=== PATIENT | male | born 1960 | race Caucasian/White ===

== ENCOUNTER 2016-08-26 03:01 | Inpatient (IN) | payer OTHER ==
[~2016-08-26] VITALS: Ht 190.5 cm; Wt 108.4 kg
[~2016-08-26 03:01] MED LIST: LIPITOR10 M1 PO
--- NOTE | 2016-08-26 08:24 | Admission Core Measures ---
Admission Meds I reviewed the following Meds: Current Medications Sig/Siva Start time Last Medication Dose Stop Time Status Admin Acetaminophen 975 MG ONCE 08/26 0000 NR (Tylenol) 08/26 2358 Oxycodone HCl 10 MG ONCE 08/26 NR (Roxicodone) 08/26 2358 Vancomycin HCl 1,500 MG ONCE ONE 08/26 0800 AC Sodium Chloride 250 ML 08/26 09 (Normal Saline 0.9%) Acute Coronary Syndrome Inclusion Criteria ACS Diagnosis No Inpatient Core Measures LDL Reminder: If No, please order W/I first 24hr of stay Congestive Heart Failure Inclusion Criteria CHF Diagnosis No Cerebrovascular accident Inclusion Criteria CVA/TIA Diagnosis No Inpatient Core Measures Bedside Swallow Eval Reminder: If BSE failed, place ST order Antithrombotic Reminder: Order Antithrombotic Medication by end of day 2 Antithrombotic Reminder: Document Reason Antithrombotic Not ordered by end of day 2 AFIB/Flutter Reminder: If Present, add to problem list AFIB/Flutter Reminder: Order Anticoag Medication for pts with AFIB/Flutter Atherosclerosis Reminder: If Present, add to problem list LDL Reminder: If No, please order W/I first 24hr of stay PT Order Reminder: If No, please order Venous thromboembolism Inpatient Core Measures VTE Risk Factors: Age > 40, Surgery VTE Prophylaxis Ordered Inpt Mech & Pharm No Mech VTE prophylaxis d/t No contraindications No VTE Pharm Prophylaxis d/t No contraindications Inclusion Criteria - Per Current guidelines, there needs to be overlap - treatment for the first 5 days of Warfarin therapy. - Parenteral Anticoagulation (IV or SC) needs to be - given along with Warfarin therapy. VTE Diagnosis No VTE Type NONE VTE Confirmed by (Test) NONE Problem List As ranked by this Provider includes Assessment & Plan 1. S/P total hip arthroplasty HOME MEDS Home Med List Atorvastatin Calcium (Lipitor) 10 MG TABLET 1 TAB PO DAILY HIGH CHOLESTEROL ( Reported)
[2016-08-26] MEDS ORDERED: DILAUDID4 M1 PO (08:38)
[2016-08-26] MEDS ORDERED: MS CONTIN30 M1 PO (08:38)
[2016-08-26] MEDS ORDERED: ASPIRIN325 M2 PO (08:38)
[2016-08-26] MEDS ORDERED: COLACE100 M1 PO (08:38)
[2016-08-26] MEDS ORDERED: MIRALAX17 G1 PO (08:38)
--- NOTE | 2016-08-26 08:41 | Patient Discharge Instructions ---
Discharge Instructions General Discharge Information You were seen/treated for: Left hip degenerative joint disease You had these procedures: Left total hip arthroplasty Watch for these problems: Significantly increased pain or difficulty ambulating. Significant drainage or redness from around the incision or fevers over 101.5 No bath, but you may shower: Yes Other wound care: Daily dry dressing change to surgical site Special Instructions: See printed information sheet Diet Continue normal diet: Yes Activity Activity Self Limited: Yes Pounds, do NOT lift more than: 10 Other activity limits: Do not drive will cooperate heavy machinery until cleared by surgeon Ambulate per physical therapy instruction Acute Coronary Syndrome Inclusion Criteria At DC or during hospital stay patient has or had the following: ACS DIAGNOSIS No Discharge Core Measures Meds if any: Prescribed or Continued at Discharge Meds if any: NOT Prescribed or Continued at Discharge Congestive Heart Failure Inclusion Criteria At DC or during hospital stay patient has or had the following: CHF DIAGNOSIS No Discharge Core Measures Meds if any: Prescribed or Continued at Discharge Meds if any: NOT Prescribed or Continued at Discharge Cerebrovascular accident Inclusion Criteria At DC or during hospital stay patient has or had the following: CVA/TIA Diagnosis No Discharge Core Measures Meds if any: Prescribed or Continued at Discharge Meds if any: NOT Prescribed or Continued at Discharge Venous thromboembolism Inclusion Criteria VTE Diagnosis No VTE Type NONE VTE Confirmed by (Test) NONE Discharge Core Measures - Per Current guidelines, there needs to be overlap - treatment for the first 5 days of Warfarin therapy. - If discharged on Warfarin prior to 5 days of - overlap therapy, the patient will need to be - assessed for post discharge needs including - *Post discharge parental anticoagulation - *Warfarin and/or parental anticoagulation education - *Follow up date to check INR post discharge At least 5 days overlap therapy as Inpatient No Meds if any: Prescribed or Continued at Discharge Note: Overlap Therapy is Warfarin and Anticoagulant Meds if any: NOT Prescribed or Continued at Discharge
--- NOTE | 2016-08-26 08:42 | Surg Short-stay <48hrs Dis Sum ---
Visit Information Visit Dates Admission Date: 08/26/16 Discharge Date: 08/26/16 Surgical Short Stay DC Summary Admission Diagnosis: Left hip degenerative joint disease Final Diagnosis: Same Procedure(s): Left total hip arthroplasty Summary/Significant Findings: The patient was admitted on 08/26/2016. He WAS brought to the operating theater where he underwent a left total hip arthroplasty. Postoperative the patient progressed as expected, his pain was under adequate control, and with physical therapy and tolerated a diet without nausea. The patient was discharged with an uneventful hospital course. Condition at Discharge: Stable Discharge Disposition: home health services Discharge instructions provided to patient/family: Yes Post discharge follow-up plan: Call the office to be seen in 6 weeks or if need be earlier.
--- NOTE | 2016-08-26 11:46 | RADIOLOGY REPORT ---
EXAMINATION: XR HIP, LEFT CLINICAL INFORMATION: Status post left total hip arthroplasty. COMPARISON: None TECHNIQUE: Two views of the left hip. FINDINGS: Post total hip arthroplasty changes are identified without evidence of immediate complication. IMPRESSION: Postoperative changes as noted.
[2016-08-26 12:00] VITALS: BP 110/70
--- NOTE | 2016-08-26 13:11 | PN- Orthopedic ---
Subjective Subjective: Post Op Note s/p left total hip replacment Patient without c/o. No pain at the moment. Has some numbness in b/l heals, otherwise no numbness/tingling in LLE. Patient ambulated to bed from stretcher without difficulty but has not ambulated with PT. Tolerating diet thus far without n/v. Denies CP/SOB. Objective Vital Signs and I&Os AVSS Physical Exam: General: NAD, comfortable, A&Ox3 Chest: NRD, breathing comfortably on RA. RRR. Abdomen: soft, nontender, nondistended. Ext: Left hip dressing c/d/i. Left hip softly swollen, compartments soft. No calve swelling/TTP, neurovascularly intact bilateral lower extremities Current Medications: Current Medications Sig/Siva Start time Last Medication Dose Route Stop Time Status Admin Acetaminophen 1,000 MG Q8 08/26 1400 AC IV 08/27 0601 Acetaminophen 975 MG ONCE 08/26 0000 DC PO 08/26 2359 Aspirin 325 MG BID 08/26 1000 AC PO Atorvastatin Calcium 10 MG 1700 08/26 1700 AC PO Dextrose/Sodium 1,000 ML .[id number] 08/26 1215 AC Chloride IV Docusate Sodium 100 MG BID 08/26 1000 AC PO Hydromorphone HCl 2 MG Q4P PRN 08/26 1215 AC PO Hydromorphone HCl 4 MG Q4P PRN 08/26 1215 AC PO Morphine Sulfate 2 MG Q2P PRN 08/26 1215 AC IV Ondansetron HCl 4 MG Q6P PRN 08/26 1215 AC IV Oxycodone HCl 10 MG .STK-MED ONE 08/26 0721 DC PO 08/26 0722 Oxycodone HCl 10 MG ONCE 08/26 0000 DC PO 08/26 2359 Polyethylene Glycol 17 GM DAILY 08/26 1000 AC PO Promethazine HCl 12.5 MG Q6P PRN 08/26 1215 AC IV 09/02 0829 Vancomycin HCl 1,500 MG Q12 08/26 2200 AC Dextrose/Water 250 ML IV 08/27 1139 Vancomycin HCl 1,500 MG Q12H 08/26 2000 DC Dextrose/Water 250 ML IV 08/27 0939 Vancomycin HCl 1,500 MG ONCE ONE 08/26 0800 DC Sodium Chloride 250 ML IV 08/26 0929 Assessment/Plan Assessment/Plan 55yo M POD#0 s/p left total hip arthroplasty. AVSS, patient doing well. - pain control - PRN zofran - OOB with PT, WBAT - I/O's - continue ppx abx - asa 325mg PO BID - ALPS while in bed - keep dressing intact - dc home if cleared by PT Core Measures/Miscellaneous Venous Thromboembolism VTE Risk Factors: Age > 40, Surgery VTE Contraindications: No Contraindications VTE Prophylaxis Ordered Inpt: Mech & Pharm VTE Diagnosis: No VTE Type: NONE VTE Confirmed by (Test): NONE Beta Meche Is Beta Meche a Home Med? No Antibiotics Is Patient on Antibiotics? Yes If Yes: prophylaxis
--- NOTE | 2016-08-26 14:47 | Operative Report ---
Operative/Inv Procedure Report Surgery Date: 08/26/16 Name of Procedure: Left total hip replacement Pre-Operative Diagnosis: Primary left hip DJD Post-Operative Diagnosis: Same Estimated Blood Loss: 300 Surgeon/Supervisor Channel Process: KELLI COFFMAN,JOANNE Alicea Anesthesia: block Operative/Procedure Note Note: Description of Procedure: The patient was taken to the operating room and positively identified. After induction of spinal anesthesia and administration of appropriate pre-operative antibiotics, the patient was positioned supine on the operating room table and all bony prominences were well padded. After performing a surgical timeout, the left lower extremity was prepped and draped in the usual sterile fashion. A direct anterior approach was made to the left hip. The incision was carried sharply through superficial soft tissues to the level of the fascia. Meticulous hemostasis was maintained with Bovie electocautery. The fascia over the tensor fascia qasim muscle was opened sharply and the interval between the TFL and the sartorius was entered bluntly taking care to stay lateral to the lateral femoral cutaneous nerve. Retractors were placed around the femoral neck and the pericapsular fat was identified. The ascending branches of the lateral femoral circumflex vessels were identified and carefully coagulated. The pericapsular fat and anterior capsule were then resected. A napkin ring osteotomy was performed and the femoral head was removed without difficulty. Attention was then turned to the acetabulum. After appropriate placement of retractors, the acetabulum was exposed. Soft tissue was cleaned from the acetabular margin and notch. Overhanging osteophytes were removed and the teardrop was exposed. The acetabulum was then sequentially reamed to accept a 60 mm [place] Tritanium hemispherical solid back shell. This was impacted into place in the appropriate position and fitted with a 36 mm Trident X3 zero degree polyethylene insert. Attention was then turned to the femur. After performing the appropriate ligament releases, the proximal femur was exposed. It was then sequentially broached to accept a size 7 [place] accolade 2 stem. This was trialed for leg length and stability. The trial component was removed and the final component was impacted into place. The trunnion was carefully cleaned and fit with a 36 mm, +5 Biolox delta ceramic femoral head. The hip was reduced and put through a full range of motion and found to be stable. The articular space was then irrigated with sterile saline. The periarticular soft tissues were infilitrated with Marcaine. The fascial layer was closed with interrupted #1 vicryl suture and the skin was re-approximated with interrupted 2 -0 vicryl. The skin was closed with a running 3-0 V-Lock suture. Steri-strips and a sterile dressing were applied. The patient was awakened and taken to the recovery room in satisfactory condition.
[2016-08-26 16:00] VITALS: BP 108/74
== END 2016-08-26 18:00 | disposition home health service (06) | DRG 470 ==
LOC: ENRESERVTM → ENRESERVDT → ENPENDDIS 03:01 → SDA 03:01 → 2NB 11:50
PROVIDERS: ADMIT Orthopaedic Surgery
PROC: 0SRB04A Replacement of Left Hip Joint with Ceramic on Polyethylene Synthetic Substitute, Uncemented, Open Approach (ICD-10-PCS; principal; 2016-08-26)
DX: M16.12 Unilateral primary osteoarthritis, left hip (principal); E78.5 Hyperlipidemia, unspecified
CPT/HCPCS: 2NBSP; 73502-LT; 88304; 97116-GO; 97161-GP; 97530-GO; J0131; J0735; J2405; J2550; J3370; J7040; J7042; J7060